=== PATIENT | female | born 1970 | race Two or more races ===

== ENCOUNTER → 2024-06-29 | Outpatient (CLI) | payer BC, SELFPAY ==
[2024-06-30 09:08] LABS: BVAG Candida Negative (Negative); Bacterial Vaginosis Markers Negative (Negative); Candida glabrata Positive (Negative); Candida krusei PCR Negative (Negative); Trichomonas Negative (Negative)
== END | disposition home or self-care (01) ==
LOC: SLDO 15:13
PROVIDERS: Referring Provider Advanced Practice Midwife; Visit Provider Advanced Practice Midwife
DX: N76.0 Acute vaginitis (principal)
CPT/HCPCS: 81514

== ENCOUNTER → 2024-09-23 | Outpatient (CLI) | payer BC, SELFPAY ==
--- NOTE | 2024-09-23 14:00 | XR_ITS ---
Examination: Screening digital mammography, bilateral Computer aided detection 3-D breast Tomosynthesis, bilateral Date and time of exam: September 23, 2024 1336 hours Compared to mammograms dating to June 26, 2021 Indication: Screening Technique: Nonmagnified MLO, CC views of the breasts to been obtained, reconstructed from 3-D Tomosynthesis images. R2 computer aided detection program utilized for evaluation of suspicious masses and/or abnormal calcifications. 3-D Tomosynthesis images obtained. Findings: Scattered areas of fibroglandular density. Stable circumscribed nodule outer left breast Benign calcifications Implants are stable in appearance No interval suspicious masses Impression: BI-RADS category II: Benign Findings. Recommend 1 year follow-up mammogram.
--- NOTE | 2024-09-23 14:30 | XR_ITS ---
Examination: Arterial duplex upper extremities. Date and time of exam: September 23, 2024 1346 hrs. Indications: Left ankle numbness left arm pain beginning one month ago Findings: Duplex sonographic imaging of the upper extremity arteries using B-mode/Richardson scale imaging and Doppler spectral analysis and color flow. Findings: No significant arterial stenoses involving either upper extremity No elevation of peak systolic velocities Impression: No sonographic findings of significant arterial stenosis
== END | disposition home or self-care (01) ==
LOC: CDIM 13:29
PROVIDERS: Referring Provider Family Medicine; Visit Provider Family Medicine
DX: Z12.31 Encounter for screening mammogram for malignant neoplasm of breast (principal); R92.323 Mammographic fibroglandular density, bilateral breasts; R92.1 Mammographic calcification found on diagnostic imaging of breast; M79.602 Pain in left arm
CPT/HCPCS: 77063; 77067; 93930

== ENCOUNTER → 2024-12-16 | Outpatient (CLI) | payer BC, SELFPAY ==
[2024-12-16 08:35] LABS: Basophils % (Auto) 1 % (0-2.5); Eosinophils # (Auto) 0.1 Thou/mm3 (0.0-0.5); Eosinophils % (Auto) 1 % (0-10); Hematocrit 41.7 % (36.0-46.0); Immature Granulocytes % (Auto) 0 % (0-0); Immature Granulocytes Auto 0.02 Thou/mm3 (0.00-0.00); Lymphocytes # (Auto) 2.4 Thou/mm3 (1.0-4.8); Lymphocytes % (Auto) 35 % (10-50); Mean Corpuscular HGB Conc 33.6 g/dl (31.0-37.0); Mean Corpuscular Hemoglobin 30.7 pg (25.0-35.0); Mean Corpuscular Volume 91 fL (80-100); Monocytes # (Auto) 0.5 Thou/mm3 (0.0-0.8); Monocytes % (Auto) 7 % (0-12); Neutrophils % (Auto) 56 % (37-80); Nucleated Red Blood Cell % 0 /100 WBC (0); Platelet Count 294 Thou/mm3 (140-440); RDW Standard Deviation 40.9 fL (36.4-46.3); Red Blood Count 4.56 Miln/mm3 (4.00-5.20); White Blood Count 7.1 Thou/mm3 (3.6-11.0)
[2024-12-16 09:05] LABS: Alanine Aminotransferase 19 U/L (10-49); Albumin, Serum 4.6 gm/dL (3.5-5.0); Albumin/Globulin Ratio 2.1 (1.2-2.2); Alkaline Phosphatase 72 U/L (46-116); Anion Gap 11 (7-16); Aspartate Amino Transferase 19 U/L (0-34); BUN/Creatinine Ratio 11 Ratio (12-20); Bilirubin,Total 1.1 mg/dL (0.3-1.2); Blood Urea Nitrogen 10 mg/dL (9-23); Calcium 9.3 mg/dL (8.3-10.6); Calcium (Corrected) 9.3 mg/dL (8.5-10.1); Carbon Dioxide 28.3 mMol/L (20.0-31.0); Cardiac Risk Estimate 2.5 RATIO (3.7-5.6); Chloride 105 mMol/L (98-107); Cholesterol 206 mg/dL (132-200); Creatinine (Component) 0.9 mg/dL (0.6-1.3); Free T4 (Free Thyroxine) 1.32 ng/dL (0.89-1.76); Globulin 2.2 gm/dL (2.3-3.5); Glucose 99 mg/dL (74-106); HDL Cholesterol 83 mg/dL (40-60); LDL Cholesterol,Calculated 106 mg/dL (0-130); Osmolality,Calculated 285 (275-295); Potassium 4.4 mMol/L (3.4-5.1); Sodium 144 mMol/L (136-145); Thyroid Stimulating Hormone 2.82 uIU/mL (0.55-4.78); Total Protein 6.8 gm/dL (5.7-8.2); Triglycerides 83 mg/dL (30-150); eGFR > 60 See Note
== END | disposition home or self-care (01) ==
LOC: COPL 07:41
PROVIDERS: PCP Family Medicine; Referring Provider Family Medicine; Visit Provider Family Medicine
DX: D50.0 Iron deficiency anemia secondary to blood loss (chronic) (principal); E03.2 Hypothyroidism due to medicaments and other exogenous substances; E78.1 Pure hyperglyceridemia; Z13.1 Encounter for screening for diabetes mellitus
CPT/HCPCS: 36415; 80053; 80061; 84439; 84443; 85025

== ENCOUNTER → 2024-12-23 | Outpatient (CLI) | payer BC, SELFPAY ==
--- NOTE | 2024-12-23 11:00 | XR_ITS ---
Examination: Abdomen sonogram, complete Date and time of exam: December 23, 2024 1042 hours INDICATIONS: Right upper abdominal pain beginning 6 months ago, cholecystectomy. Technique: Multiple real-time grayscale transabdominal sonographic images of the abdomen have been obtained. Findings: Absent gallbladder Normal common bile duct 0.2 cm Pancreatic head 2.3 cm Aorta not enlarged. Liver 14.9 cm fatty infiltration Normal hepatopedal portal venous flow Patent IVC Right kidney 10.0 cm cortex 1.0 cm Left kidney 9.5 cm cortex 1.2 cm Mild bilateral renal parenchymal scar formation Spleen 8.9 cm IMPRESSION: Absent gallbladder Normal common bile duct Fatty liver Bilateral renal cortical thinning
== END | disposition home or self-care (01) ==
LOC: CDIM 10:35
PROVIDERS: PCP Family Medicine; Referring Provider Family Medicine; Visit Provider Family Medicine
DX: K76.0 Fatty (change of) liver, not elsewhere classified (principal); K82.8 Other specified diseases of gallbladder
CPT/HCPCS: 76700

== ENCOUNTER → 2025-02-11 | Outpatient (CLI) | payer BC, SELFPAY ==
--- NOTE | 2025-02-11 10:35 | XR_ITS ---
Examination: Lumbar spine, 5 views Technique: Lumbar spine AP, lateral, coned lateral lower lumbar spine, bilateral obliques 5 views Exam date and time: February 11, 2025 1112 hours INDICATIONS: Low back pain beginning 3 weeks ago radiating down the left leg. FINDINGS: Moderate osteopenia. No lumbar fracture. Moderate to advanced degenerative disc disease L5-S1 IMPRESSION: Moderate to advanced degenerative disc disease L5-S1
== END | disposition home or self-care (01) ==
PROVIDERS: PCP Family Medicine; Referring Provider Family Medicine; Visit Provider Family Medicine
DX: M51.370 Other intervertebral disc degeneration, lumbosacral region with discogenic back pain only (principal)
CPT/HCPCS: 72110

== ENCOUNTER → 2025-03-10 | Outpatient (CLI) | payer BC, SELFPAY ==
--- NOTE | 2025-03-10 07:00 | XR_ITS ---
Examination: MRI lumbar spine without contrast Date and time of exam: March 10, 2025, 0649 hours INDICATIONS: Low back pain radiating down left leg 3 weeks Technique: Multiple MRI axial and sagittal sections lumbar spine. Sagittal T2-weighted images, TR 3500, TE 118 T1 weighted transverse sections, TR 688 T8.5, T2-weighted sagittal sections T1 weighted sagittal sections TR 621, TE 30 T2 axial sections, TR 4, 190, TE 84. Findings: Satisfactory alignment lumbar vertebral bodies on the lateral view. Advanced disc narrowing L5-S1. Disc desiccation L4-L5, L5-S1. Adequate marrow signal lumbar vertebral bodies L5-S1 4 mm central lumbar disc bulge, 8 mm left foraminal disc bulge producing mild left L5 ganglionic compression L4-L5 2 mm central lumbar disc bulges More cephalad levels are unremarkable IMPRESSION: L5-S1 4 mm central 8mm left foraminal disc bulge producing mild left L5 ganglionic compression
== END | disposition home or self-care (01) ==
LOC: SMRI 06:39
PROVIDERS: Referring Provider Family Medicine; Visit Provider Family Medicine
DX: M51.370 Other intervertebral disc degeneration, lumbosacral region with discogenic back pain only (principal); G95.20 Unspecified cord compression
CPT/HCPCS: 72148